=== PATIENT | female | born 1940 | race Caucasian/White ===

== ENCOUNTER 2016-11-20 08:24 | Inpatient (IN) ==
[2016-11-20] MEDS: Aspirin 325 MG TABLET PO SCH (19:51)
[2016-11-20] MEDS: Temazepam 15 MG CAPSULE PO PRN (19:51)
--- NOTE | 2016-11-21 04:39 | Internal Med History&Physical ---
Date of Encounter: 11/21/16 Time of Encounter: 09:11 Assessment and Plan (1) S/P TKR (total knee replacement) Current visit: Yes Status: Acute PT and OT to improve gait, transfer in improved overall ADL improve range of motion, coordinate strength. Improve functional mobility and balance skills to return to home with minimal risk of falling. Qualifiers: Laterality: left Qualified Code(s): Z96.652 - Presence of left artificial knee joint (2) Anemia Current visit: Yes Status: Chronic Hemoglobin down to 7.6 today from 8.6. We will continue to monitor. Qualifiers: Anemia type: unspecified type Qualified Code(s): D64.9 - Anemia, unspecified (3) Hyponatremia Current visit: Yes Status: Chronic Sodium 133 today. Internal Medicine - H&P: HPI Admitted From: Intrahospital Transfer Plans for Post Hospital Care: Home History of present illness: Ms. Ivan is a 76 year old female transferred to this facility status post left total knee replacement. She has had pain over the left knee for years. She has been receiving shots every 3 months and finally quit working. She is here for PTOT to improve her gait, balance in transfer. On today's examination she denies any shortness of breath. No chest pain. Complains of moderate postop pain Past Med Surg Social Fam HX - Past Medical History Medical history: COPD, hyperlipidemia, hypertension Psychiatric history: no psych history - Past Surgical History Surgical History: cataract, hysterectomy, knee replacement - Social History Smoking Status: Former smoker Alcohol use: none Drug use: none - Family History Mother Living Status: Hx Family Cancer: Yes (lung) Sister Living Status: Hx Family Cancer: Yes (liver) Internal Medicine - H&P: Meds Albuterol Sulfate [Albuterol Inhaler] 1 puff IH Q4HR PRN 11/20/16 [History] Amlodipine [Norvasc] 10 mg PO DAILY 11/20/16 [History] Aspirin Enteric Coated [Aspirin EC] 81 mg PO DAILY 11/20/16 [History] Benazepril/Hydrochlorothiazide [Lotensin Hct 10-12.5 mg Tablet] 2 tab PO DAILY 11/20/16 [History] Budesonide/Formoterol 160/4.5 [Symbicort 160/4.5] 1 puff IH DAILY 11/20/16 [ History] Calcium Carbonate [Calcium] 1,200 mg PO HS 11/20/16 [History] Meloxicam 15 mg PO DAILY 11/20/16 [History] [place]-3S/Dha/Epa/Fish Oil [Fish Oil 1,200 mg Softgel] 1 each PO DAILY 11/20/16 [ History] Pravastatin Sodium 20 mg PO HS 11/20/16 [History] Ranitidine HCl [Zantac] 150 mg PO BID PRN 11/20/16 [History] Allergies codeine Allergy (Verified 11/20/16 13:13) See Comments pt cannot remember what reaction she had, states it was many years ago All Systems PM: A 10-system review of systems was performed and is negative for pertinent findings except as documented above in the HPI. - Cardiovascular Cardiovascular ROS IM: no chest pain, no diaphoresis, no dyspnea, no lightheadedness, no palpitations, no syncope - Respiratory Respiratory: no cough, no dyspnea, no wheezing, no excessive phlegm production - Gastrointestinal Gastrointestinal: no abdominal pain, no diarrhea, no hematemesis, no hematochezia, no melena, no nausea, no vomiting - Musculoskeletal Musculoskeletal ROS IM: arthralgias, back pain, joint swelling, limited range of motion, stiffness - Neurological Neurological ROS: abnormal gait - Constitutional Vitals: Temp Pulse Resp BP Pulse Ox 97.7 F 92 16 148/72 95 11/21/16 04:25 11/21/16 04:25 11/20/16 23:59 11/21/16 04:25 11/21/16 04:25 General appearance: Present: A&O X 3, pleasant, no acute distress - Respiratory Respiratory exam: Present: CTAB. Absent: accessory muscle use, rales, rhonchi, wheezes - Cardiovascular Cardiovascular exam: Present: RRR, +S1, +S2. Absent: diastolic murmur, gallop, rubs, systolic murmur - GI/Abdominal GI/Abdominal exam: Present: normal bowel sounds, soft, no peritoneal signs. Absent: distended, tenderness - Expanded Lower Extremities Exam Knee exam: Present: erythema, swelling, tenderness - Neurological Exam Neurological exam: Present: oriented X3, no focal deficits. Absent: pronater drift, facial droop, speech deficit Internal Med - H&P Results - Labs CBC & Chem 7: 11/21/16 05:00 11/21/16 05:00
[2016-11-21] MEDS: *HR* OxyCODONE/APAP 5/325 TABLET PO PRN ×2 (05:00→14:23)
[2016-11-21 05:30] LABS: Basophils % 0.4 %; Eosinophils # 0.2 K/mcL (0.0-0.6); Eosinophils % 2.6 %; Hematocrit 23.1 % (35.3-44.9); Hemoglobin 7.6 g/dL (11.5-15.4); Immature Granulocytes % 0.6 % (0-4); Lymphocytes # 1.1 K/mcL (0.6-4.6); Lymphocytes % 14.7 %; Mean Corpuscular HGB Conc 32.9 g/dL (31.6-35.5); Mean Corpuscular Volume 66.8 fL (83.0-100.0); Mean Platelet Volume 8.1 fL (9.4-12.4); Monocytes # 0.7 K/mcL (0.0-1.3); Monocytes % 8.4 %; Neutrophils # 5.7 K/mcL (1.6-8.9); Platelet Count 371 K/mcL (140-400); Red Blood Count 3.46 M/mcL (3.82-4.97); Red Cell Distribution Width 18.6 % (11.5-14.5); Segmented Neutrophils % 73.3 %
[2016-11-21 05:39] LABS: INR 1.2; Prothrombin Time 12.9 Seconds (9.4-12.1)
[2016-11-21 05:44] LABS: BUN/Creatinine Ratio 25 (6-26); Blood Urea Nitrogen 15 mg/dL (7-20); Calcium 8.7 mg/dL (8.6-10.8); Carbon Dioxide 25 mEq/L (19-29); Chloride 97 mEq/L (98-109); Glucose 114 mg/dL (70-99); Osmolality,Calculated 278 (280-300); Sodium 133 mEq/L (136-145); eGFR For African Americans > 60 (> 60); eGFR For Non-African Americans > 60 (> 60)
[2016-11-21 05:46] LABS: Anisocytosis 1+ (Not Present); Hypochromasia Present (Not Present); Microcytosis Present (Not Present)
[2016-11-21] MEDS: Multivit/Ca/Min/Fe/FA 1 TAB TABLET PO SCH (09:20)
[2016-11-21] MEDS: Aspirin 325 MG TABLET PO SCH ×2 (09:20→19:45)
[2016-11-21] MEDS: Lisinopril 20 MG TABLET PO SCH (09:21)
[2016-11-21] MEDS: Budesonide/Formoterol 160/4.5 MDI IH SCH (09:23)
[2016-11-22 05:34] LABS: Hematocrit 23.3 % (35.3-44.9); Hemoglobin 7.4 g/dL (11.5-15.4)
[2016-11-22] MEDS: *HR* OxyCODONE/APAP 5/325 TABLET PO PRN ×3 (09:06→23:12)
[2016-11-22] MEDS: Multivit/Ca/Min/Fe/FA 1 TAB TABLET PO SCH (09:06)
[2016-11-22] MEDS: Aspirin 325 MG TABLET PO SCH ×2 (09:07→20:30)
[2016-11-22] MEDS: Lisinopril 20 MG TABLET PO SCH (09:07)
[2016-11-22] MEDS: Budesonide/Formoterol 160/4.5 MDI IH SCH (09:08)
--- NOTE | 2016-11-22 12:28 | Internal Med Progress Note ---
Date of Encounter: 11/22/16 Time of Encounter: 12:26 - Assessment and plan (1) S/P TKR (total knee replacement) Current Visit: Yes Status: Acute Assessment and plan: Patient had pain for multiple years. Conservative measures fail Qualifiers: Laterality: left Qualified Code(s): Z96.652 - Presence of left artificial knee joint (2) Anemia Current Visit: Yes Status: Chronic Assessment and plan: Apparently had some preoperative anemia and obviously postop will follow hemoglobin Qualifiers: Anemia type: unspecified type Qualified Code(s): D64.9 - Anemia, unspecified (3) Hyponatremia Current Visit: Yes Status: Chronic Assessment and plan: Follow-up. Sodium is improved - Time Spent With Patient less than 15 minutes - Subjective Interval history: No complaints.. here for deep rehabilitation after total knee replaced - Constitutional Vitals: Temp Pulse Resp BP Pulse Ox 98.4 F 88 18 128/66 96 11/22/16 06:36 11/22/16 06:36 11/22/16 06:36 11/22/16 06:36 11/22/16 06:36 General appearance: Present: A&O X 3, pleasant, no acute distress - Head Head exam: Present: atraumatic, normal inspection, normocephalic - Respiratory Respiratory exam: Present: CTAB. Absent: accessory muscle use, rales, rhonchi, wheezes - Cardiovascular Cardiovascular exam: Present: RRR, +S1, +S2. Absent: diastolic murmur, gallop, rubs, systolic murmur - GI/Abdominal GI/Abdominal exam: Present: normal bowel sounds, soft, no peritoneal signs. Absent: distended, tenderness Internal Medicine: Result - Labs CBC & Chem 7: 11/22/16 05:15 11/21/16 05:00 Labs: Short CBC 11/22/16 Range/Units 05:15 Hgb 7.4 L (11.5-15.4) g/dL Hct 23.3 L (35.3-44.9) % Lab looks good to follow hemoglobin. - ABG Interpretation ABG results: PT/INR, D-dimer PT 12.9 Seconds (9.4-12.1) H 11/21/16 05:00 Consult Discharge Plan - Plan Referrals: Caprice Slaughter MD [Primary Care Provider] -
[2016-11-22] MEDS: Temazepam 15 MG CAPSULE PO PRN (23:12)
[2016-11-23] MEDS: *HR* OxyCODONE/APAP 5/325 TABLET PO PRN ×4 (03:41→18:33)
[2016-11-23 05:53] LABS: BUN/Creatinine Ratio 32 (6-26); Blood Urea Nitrogen 18 mg/dL (7-20); Calcium 8.5 mg/dL (8.6-10.8); Carbon Dioxide 22 mEq/L (19-29); Chloride 102 mEq/L (98-109); Glucose 105 mg/dL (70-99); Osmolality,Calculated 278 (280-300); Potassium 4.4 mEq/L (3.5-4.5); Sodium 133 mEq/L (136-145); eGFR For African Americans > 60 (> 60); eGFR For Non-African Americans > 60 (> 60)
[2016-11-23 06:05] LABS: Basophils # 0.1 K/mcL (0.0-0.2); Basophils % 0.6 %; Eosinophils # 0.6 K/mcL (0.0-0.6); Eosinophils % 5.9 %; Hemoglobin 7.4 g/dL (11.5-15.4); Immature Granulocytes % 0.9 % (0-4); Lymphocytes # 1.9 K/mcL (0.6-4.6); Lymphocytes % 19.9 %; Mean Corpuscular HGB Conc 32.2 g/dL (31.6-35.5); Mean Corpuscular Hemoglobin 21.9 pg (28.0-33.3); Mean Platelet Volume 7.9 fL (9.4-12.4); Monocytes # 0.8 K/mcL (0.0-1.3); Monocytes % 8.2 %; Neutrophils # 6.1 K/mcL (1.6-8.9); Platelet Count 410 K/mcL (140-400); Red Blood Count 3.38 M/mcL (3.82-4.97); Red Cell Distribution Width 19.1 % (11.5-14.5); Segmented Neutrophils % 64.5 %
[2016-11-23 06:09] LABS: Hypochromasia Present (Not Present); Microcytosis Present (Not Present); Platelet Estimate Normal (Normal)
[2016-11-23 06:10] LABS: Macrocytosis Present (Not Present)
[2016-11-23] MEDS: Aspirin 325 MG TABLET PO SCH ×2 (08:56→21:20)
[2016-11-23] MEDS: Multivit/Ca/Min/Fe/FA 1 TAB TABLET PO SCH (08:56)
[2016-11-23] MEDS: Lisinopril 20 MG TABLET PO SCH (08:56)
[2016-11-23] MEDS: Budesonide/Formoterol 160/4.5 MDI IH SCH (08:58)
--- NOTE | 2016-11-23 11:45 | Internal Med Progress Note ---
Date of Encounter: 11/23/16 Time of Encounter: 11:43 - Assessment and plan (1) S/P TKR (total knee replacement) Current Visit: Yes Status: Acute Assessment and plan: Tolerating PT and OT. Balance, transfer and gait improving. Qualifiers: Laterality: left Qualified Code(s): Z96.652 - Presence of left artificial knee joint (2) Anemia Current Visit: Yes Status: Chronic Assessment and plan: Hemoglobin is 7.4 and stable at this time. Apparently had some preoperative anemia and obviously postop will follow hemoglobin Qualifiers: Anemia type: unspecified type Qualified Code(s): D64.9 - Anemia, unspecified (3) Hyponatremia Current Visit: Yes Status: Chronic - Subjective Interval history: Complains of minimal left knee postop pain. Complains of constipation. No shortness of breath. No chest pain. No nausea vomiting abdominal pain. Good oral intake. - Constitutional Vitals: Temp Pulse Resp BP Pulse Ox 98.2 F 82 18 130/74 97 11/23/16 07:50 11/23/16 07:50 11/23/16 07:50 11/23/16 07:50 11/23/16 07:50 General appearance: Present: A&O X 3, pleasant, no acute distress - Respiratory Respiratory exam: Present: CTAB. Absent: accessory muscle use, rales, rhonchi, wheezes - Cardiovascular Cardiovascular exam: Present: RRR, +S1, +S2. Absent: diastolic murmur, gallop, rubs, systolic murmur - GI/Abdominal GI/Abdominal exam: Present: normal bowel sounds, soft, no peritoneal signs. Absent: distended, tenderness - Expanded Lower Extremities Exam Knee exam: Present: full ROM, swelling, tenderness - Incison Incision: Present: clean and dry - Neurological Exam Neurological exam: Present: CN II-XII intact, oriented X3, no focal deficits. Absent: pronater drift, facial droop, speech deficit Internal Medicine: Result - Labs CBC & Chem 7: 11/23/16 05:25 11/23/16 05:25 Labs: Short CBC 11/23/16 Range/Units 05:25 WBC 9.5 (4.3-11.1) K/mcL Hgb 7.4 L (11.5-15.4) g/dL Hct 23.0 L (35.3-44.9) % Plt Count 410 H (140-400) K/mcL Neutrophils # 6.1 (1.6-8.9) K/mcL BMP 11/23/16 05:25 Sodium 133 L Potassium 4.4 Chloride 102 Carbon Dioxide 22 BUN 18 Creatinine 0.57 Glucose 105 H Calcium 8.5 L - ABG Interpretation ABG results: PT/INR, D-dimer PT 12.9 Seconds (9.4-12.1) H 11/21/16 05:00 Consult Discharge Plan - Plan Referrals: Caprice Slaughter MD [Primary Care Provider] -
--- NOTE | 2016-11-24 00:13 | Internal Med Progress Note ---
Date of Encounter: 11/24/16 Time of Encounter: 07:54 - Assessment and plan (1) S/P TKR (total knee replacement) Current Visit: Yes Status: Acute Assessment and plan: Tolerating PT and OT. Balance, transfer and gait improving. Qualifiers: Laterality: left Qualified Code(s): Z96.652 - Presence of left artificial knee joint (2) Anemia Current Visit: Yes Status: Chronic Assessment and plan: Hemoglobin is 7.4 and stable at this time. Apparently had some preoperative anemia and obviously postop will follow hemoglobin Qualifiers: Anemia type: unspecified type Qualified Code(s): D64.9 - Anemia, unspecified (3) Hyponatremia Current Visit: Yes Status: Chronic Assessment and plan: Sodium level stable and being monitored - Time Spent With Patient less than 15 minutes - Subjective Interval history: Complains of minimal left knee postop pain. Complains of constipation. No shortness of breath. No chest pain. No nausea vomiting abdominal pain. Good oral intake. - Constitutional Vitals: Temp Pulse Resp BP Pulse Ox 98.3 F 99 16 150/69 99 11/23/16 19:00 11/23/16 19:00 11/23/16 19:00 11/23/16 19:00 11/23/16 19:00 General appearance: Present: A&O X 3, pleasant, no acute distress - Respiratory Respiratory exam: Present: CTAB. Absent: accessory muscle use, rales, rhonchi, wheezes - Cardiovascular Cardiovascular exam: Present: RRR, +S1, +S2. Absent: diastolic murmur, gallop, rubs, systolic murmur - GI/Abdominal GI/Abdominal exam: Present: normal bowel sounds, soft, no peritoneal signs. Absent: distended, tenderness - Expanded Lower Extremities Exam Knee exam: Present: swelling, tenderness Gait: Present: antalgic - Incison Incision: Present: clean and dry Internal Medicine: Result - Labs CBC & Chem 7: 11/23/16 05:25 11/23/16 05:25 Labs: Short CBC 11/23/16 Range/Units 05:25 WBC 9.5 (4.3-11.1) K/mcL Hgb 7.4 L (11.5-15.4) g/dL Hct 23.0 L (35.3-44.9) % Plt Count 410 H (140-400) K/mcL Neutrophils # 6.1 (1.6-8.9) K/mcL BMP 11/23/16 05:25 Sodium 133 L Potassium 4.4 Chloride 102 Carbon Dioxide 22 BUN 18 Creatinine 0.57 Glucose 105 H Calcium 8.5 L - ABG Interpretation ABG results: PT/INR, D-dimer PT 12.9 Seconds (9.4-12.1) H 11/21/16 05:00 - VTE Documentation of Mechanical Device: Graduated compression elastic hosiery Consult Discharge Plan - Plan Referrals: Caprice Slaughter MD [Primary Care Provider] -
[2016-11-24] MEDS: *HR* OxyCODONE/APAP 5/325 TABLET PO PRN ×2 (09:02→18:23)
[2016-11-24] MEDS: Aspirin 325 MG TABLET PO SCH ×2 (09:02→20:01)
[2016-11-24] MEDS: Lisinopril 20 MG TABLET PO SCH (09:02)
[2016-11-24] MEDS: Multivit/Ca/Min/Fe/FA 1 TAB TABLET PO SCH (09:02)
[2016-11-24] MEDS: Budesonide/Formoterol 160/4.5 MDI IH SCH (12:46)
[2016-11-25] MEDS: *HR* OxyCODONE/APAP 5/325 TABLET PO PRN ×2 (06:33→20:29)
[2016-11-25] MEDS: Lisinopril 20 MG TABLET PO SCH (08:30)
[2016-11-25] MEDS: Aspirin 325 MG TABLET PO SCH ×2 (08:30→20:29)
[2016-11-25] MEDS: Multivit/Ca/Min/Fe/FA 1 TAB TABLET PO SCH (08:31)
[2016-11-25] MEDS: Budesonide/Formoterol 160/4.5 MDI IH SCH (10:26)
--- NOTE | 2016-11-25 12:16 | Physical Med Progress Note ---
Date of Encounter: 11/25/16 Time of Encounter: 12:14 Physical Medicine-PN: Subj Interval history: PMR PCC note Patient is doing well following her right TKA. Mod I for dressing and ADLs. Patient ambulating with walker community distances. Plan for discharge to home with outpatient PT 11/26/16. - Constitutional Vitals: Vital Signs Temp Pulse Resp BP Pulse Ox 11/25/16 07:20 98.9 F 102 18 175/79 97 11/24/16 19:00 99.1 F 83 17 131/70 96 Intake and Output 11/24/16 11/25/16 11/25/16 23:59 07:59 15:59 Intake Total 300 / 300 240 / 240 Balance 300 / 300 240 / 240 Intake: Oral 300 / 300 240 / 240 Other: Meal Breakfast Percent of Meal Consumed 65% # Voids 1 Physical Medicine-PN: Obj Data - Labs CBC & Chem 7: 11/23/16 05:25 11/23/16 05:25 - ABG Interpretation ABG results: PT/INR, D-dimer PT 12.9 Seconds (9.4-12.1) H 11/21/16 05:00 - VTE Documentation of Mechanical Device: Graduated compression elastic hosiery Consult Discharge Plan - Plan Referrals: Caprice Salughter MD [Primary Care Provider] -
--- NOTE | 2016-11-25 13:10 | Internal Med Progress Note ---
Date of Encounter: 11/25/16 Time of Encounter: 13:08 - Assessment and plan (1) S/P TKR (total knee replacement) Current Visit: Yes Status: Acute Assessment and plan: Patient status post total knee replacement due to osteoarthritis. Doing well Qualifiers: Laterality: left Qualified Code(s): Z96.652 - Presence of left artificial knee joint (2) Anemia Current Visit: Yes Status: Chronic Assessment and plan: Hemoglobin note it will follow prior to discharge Qualifiers: Anemia type: unspecified type Qualified Code(s): D64.9 - Anemia, unspecified (3) Hyponatremia Current Visit: Yes Status: Chronic Assessment and plan: Sodium was 133 I think it will be okay - Time Spent With Patient less than 15 minutes - Subjective Interval history: No complaints.. here for rehabilitation after total knee replaced - Constitutional Vitals: Temp Pulse Resp BP Pulse Ox 98.9 F 102 18 175/79 97 11/25/16 07:20 11/25/16 07:20 11/25/16 07:20 11/25/16 07:20 11/25/16 07:20 General appearance: Present: A&O X 3, pleasant, no acute distress - Head Head exam: Present: atraumatic, normal inspection, normocephalic - Neck Neck exam general surgery: Present: supple, trachea midline. Absent: lymphadenopathy - Respiratory Respiratory exam: Present: CTAB. Absent: accessory muscle use, rales, rhonchi, wheezes - Cardiovascular Cardiovascular exam: Present: RRR, +S1, +S2. Absent: diastolic murmur, gallop, rubs, systolic murmur Internal Medicine: Result - Labs CBC & Chem 7: 11/23/16 05:25 11/23/16 05:25 Labs: We will watch the hemoglobin - ABG Interpretation ABG results: PT/INR, D-dimer PT 12.9 Seconds (9.4-12.1) H 11/21/16 05:00 - VTE Documentation of Mechanical Device: Graduated compression elastic hosiery Consult Discharge Plan - Plan Referrals: Caprice Slaughter MD [Primary Care Provider] -
--- NOTE | 2016-11-25 14:31 | Discharge Summary ---
Date of Encounter: 11/25/16 Time of Encounter: 14:29 - Discharge Diagnosis (1) S/P TKR (total knee replacement) Priority: Primary Status: Acute Comments: Patient had total knee replacement due to osteoarthritis Qualifiers: Laterality: left Qualified Code(s): Z96.652 - Presence of left artificial knee joint (2) Anemia Priority: Secondary Status: Chronic Comments: Hemoglobin was down slightly but I will check an prior to discharge Qualifiers: Anemia type: unspecified type Qualified Code(s): D64.9 - Anemia, unspecified (3) Hyponatremia Priority: Secondary Status: Chronic Comments: Minimally changed. - Discharge Medications Home Medications: Albuterol Sulfate [Albuterol Inhaler] 1 puff IH Q4HR PRN 11/20/16 [History] Amlodipine [Norvasc] 10 mg PO DAILY 11/20/16 [History] Aspirin Enteric Coated [Aspirin EC] 81 mg PO DAILY 11/20/16 [History] Benazepril/Hydrochlorothiazide [Lotensin Hct 10-12.5 mg Tablet] 2 tab PO DAILY 11/20/16 [History] Budesonide/Formoterol 160/4.5 [Symbicort 160/4.5] 1 puff IH DAILY 11/20/16 [ History] Calcium Carbonate [Calcium] 1,200 mg PO HS 11/20/16 [History] Meloxicam 15 mg PO DAILY 11/20/16 [History] [place]-3S/Dha/Epa/Fish Oil [Fish Oil 1,200 mg Softgel] 1 each PO DAILY 11/20/16 [ History] Pravastatin Sodium 20 mg PO HS 11/20/16 [History] Ranitidine HCl [Zantac] 150 mg PO BID PRN 11/20/16 [History] Allergies/Adverse Reactions: Allergies codeine Allergy (Verified 11/20/16 13:13) See Comments pt cannot remember what reaction she had, states it was many years ago Date of admission: 11/20/16 12:33 Primary care physician: Caprice Slaughter MD Consults: 11/20/16 14:03 Consult to Occupational Therapy [CONS] Routine Comment: Evaluate, develop and implement POC Consult to Physical Therapy [CONS] Routine Comment: Evaluate, develop and implement POC Consult to Recreational Therapy [CONS] Routine Comment: Evaluate, develop and implement POC Discharging clinician: Marco A Han Anticipated date of discharge: 11/25/16 - Patient Status Disposition: Home, Self-Care Condition: Good Functional capacity at discharge: uses cane/walker Overall status at discharge: patient is progressing back to baseline - Discharge Instructions Follow Up With: Caprice Slaughter MD [Primary Care Provider] - - Diet and Activity Activity: ambulate only with your walker Diet: advance to your usual diet Interval History: Patient was brought to [facility] status post total knee replacement for osteoarthritis. For rehabilitation Hospital course: Ms. Ivan is a 76 year old female Patient has done well will be discharged in the a.m. - Time Spent with Patient Total time spent providing and/or coordinating discharge services: - Constitutional Vitals: Temp Pulse Resp BP Pulse Ox 98.9 F 102 18 175/79 97 11/25/16 07:20 11/25/16 07:20 11/25/16 07:20 11/25/16 07:20 11/25/16 07:20 General appearance: Present: A&O X 3, pleasant, no acute distress - Head Head exam: Present: atraumatic, normal inspection, normocephalic - Neck Neck exam general surgery: Present: supple, trachea midline. Absent: lymphadenopathy - Respiratory Respiratory exam: Present: CTAB. Absent: accessory muscle use, rales, rhonchi, wheezes - Cardiovascular Cardiovascular exam: Present: RRR, +S1, +S2. Absent: diastolic murmur, gallop, rubs, systolic murmur - VTE Documentation of Mechanical Device: Graduated compression elastic hosiery
[2016-11-25] MEDS: Temazepam 15 MG CAPSULE PO PRN (20:29)
[2016-11-26 05:25] LABS: Basophils % 0.5 %; Eosinophils # 0.3 K/mcL (0.0-0.6); Eosinophils % 3.2 %; Hematocrit 21.5 % (35.3-44.9); Hemoglobin 6.9 g/dL (11.5-15.4); Immature Granulocytes % 0.7 % (0-4); Lymphocytes # 1.6 K/mcL (0.6-4.6); Mean Corpuscular HGB Conc 32.1 g/dL (31.6-35.5); Mean Corpuscular Hemoglobin 22.4 pg (28.0-33.3); Mean Corpuscular Volume 69.8 fL (83.0-100.0); Mean Platelet Volume 7.9 fL (9.4-12.4); Monocytes # 0.8 K/mcL (0.0-1.3); Monocytes % 9.6 %; Neutrophils # 5.7 K/mcL (1.6-8.9); Platelet Count 420 K/mcL (140-400); Red Blood Count 3.08 M/mcL (3.82-4.97); Red Cell Distribution Width 20.4 % (11.5-14.5)
[2016-11-26] MEDS: *HR* OxyCODONE/APAP 5/325 TABLET PO PRN (06:20)
[2016-11-26] MEDS: Lisinopril 20 MG TABLET PO SCH (08:32)
[2016-11-26] MEDS: Aspirin 325 MG TABLET PO SCH (08:32)
[2016-11-26] MEDS: Multivit/Ca/Min/Fe/FA 1 TAB TABLET PO SCH (08:32)
[2016-11-26] MEDS: Budesonide/Formoterol 160/4.5 MDI IH SCH (08:33)
[2016-11-26] MEDS ORDERED: 0.9 % Sodium Chloride 250 ML ONE (10:46)
[2016-11-26 14:10] VITALS: BP 133/88
== END 2016-11-26 16:30 | disposition home or self-care (01) ==
LOC: INPGRE 12:33
PROVIDERS: ADMIT Internal Medicine; ATTEND Internal Medicine